=== PATIENT | male | born 1975 | race Two or more races ===

== ENCOUNTER 2017-04-23 08:46 | Day surgery (SDC) | payer OTHER ==
--- NOTE | 2017-04-04 22:34 | HP ---
PREOPERATIVE HISTORY AND PHYSICAL: DATE OF ADMISSION/SURGERY: 04/23/17 PROCEDURE: Right shoulder arthroscopic decompression and excision, distal clavicle. CHIEF COMPLAINT: Right shoulder pain. HISTORY OF PRESENT ILLNESS: Rolando is a 41-year-old male who presented to the clinic for right shoulder pain due to AC joint arthritis. He has failed conservative measures to include injections, therefore has agreed to undergo a right shoulder arthroscopic decompression and excision distal clavicle with Dr. Love on 04/23/17. PAST MEDICAL HISTORY: Seizure disorder and anxiety. PAST SURGICAL HISTORY: Septoplasty mass removal of the right hand pilonidal cyst. Denies prior complications with anesthesia. MEDICATIONS: 1. Adderall XR 30 mg 1 by mouth every day. 2. Methylphenidate HCl ER at 20 mg 1 by mouth every morning. ALLERGIES: No known drug allergies. FAMILY HISTORY: Positive for heart disease, stroke, cancer and rheumatoid arthritis. SOCIAL HISTORY: He lives with his . He is a plain clothes police officer. He denies tobacco use. He reports occasional alcohol consumption. He denies illegal drug use. REVIEW OF SYSTEMS: General: Negative for fever, chills, night sweats. No known anesthesia problems. HEENT: Negative for headache, lightheadedness, or syncopal episodes. Integumentary: Negative for abrasions, lesions, or open wounds. Cardiothoracic: Negative for chest pain, palpitations, or edema. Negative for hypertension. Pulmonary: Negative for shortness of breath with exertion, cough or COPD. GI: Negative for nausea, vomiting, diarrhea, constipation, or GERD. : Negative for nocturia, urinary frequency, history of UTIs or kidney problems. Musculoskeletal: Positive for right shoulder pain. Neuro: Negative for paresthesia or numbness. He does have a history of seizures. Denies history of stroke. Endocrine: Negative for diabetes or thyroid issues. Heme: Negative for easy bruising, anemia, excessive bleeding, or bleeding disorder, history of DVT, or PE. Infectious Disease: Denies history of MRSA. PHYSICAL EXAMINATION GENERAL: A well-developed, well-nourished 41-year-old male in no acute distress. Alert and oriented x3 with appropriate mood and affect. VITAL SIGNS: Height 70, weight 201. Blood pressure 121/82, respiratory rate 16 , temperature 96.7. BMI 28.8. HEENT: Normocephalic, atraumatic. PERRLA. NECK: Supple. Throat clear. PULMONARY: Lungs are clear to auscultation bilaterally. No wheezing, rhonchi, or rales. CARDIO: Regular rate and rhythm. S1 and S2. No murmurs, gallops, or rubs. No edema. ABDOMEN: Positive bowel sounds, soft, nontender. MUSCULOSKELETAL: Right upper extremity skin is intact. Tenderness to palpation over the AC joint and the proximal biceps. Right upper extremity skin is intact. There is tenderness to palpation over the AC joint and the proximal biceps. Forward flexion 160, abduction 160, external rotation to 80, internal rotation to T10. +5/5 strength to rotator cuff testing. +2 radial and ulnar pulse. Sensation intact to light touch distally. NEURO: Alert and oriented x3. Cranial nerves grossly intact. Sensation intact to light touch. DIAGNOSTIC STUDIES/LAB DATA: MRI from an outside facility was reviewed and revealed AC joint arthritis and in the biceps groove. No evidence of full thickness rotator cuff tear. IMPRESSION: Right shoulder AC joint arthritis. PLAN: The patient is scheduled to undergo a right shoulder arthroscopic decompression and excision distal clavicle with Dr. Love on 04/23/17. He will return to the office 10 to 14 days postop for followup and suture removal. Percocet will be used for postoperative pain management. LEWIS GARCIA [id number]/[facility] #: [id number] [facility]
[~2017-04-23 08:46] MED LIST: Buffered Lidocaine 0.9% SYRIN* 5 ML/SYR SYRINGE INTRADERM ONE; Bupivacaine 0.25% SDV* 30 ML ONE; Famotidine IV* 10 MG/ML 2 ML (20 mg) IV ONE; KETAMINE HCL* 50 MG/ML 10 ML VIAL ONE; Midazolam* 1 MG/ML 5 ML VIAL (5 MG) ONE; fentaNYL* 50 MCG/ML 2 ML VIAL (100 MCG VIAL) ONE
[2017-04-23] MEDS ORDERED: Famotidine IV* 10 MG/ML 2 ML (20 mg) ONE (09:03)
[2017-04-23] MEDS ORDERED: Buffered Lidocaine 0.9% SYRIN* 5 ML/SYR SYRINGE ONE (09:04)
[2017-04-23] MEDS ORDERED: ceFAZolin 2 GM PREMIX(*) 2 GM/50 ML BAG IVPB ONE (09:05)
[2017-04-23] MEDS ORDERED: Bupivacaine 0.25% SDV* 30 ML ONE (10:17)
[2017-04-23] MEDS ORDERED: Bupivacaine 0.25% EPI 200,000* 30 ML SDV ONE (10:18)
[2017-04-23] MEDS ORDERED: Ondansetron INJ* 2 MG/ML VIAL ONE (11:18)
[2017-04-23] MEDS ORDERED: Lidocaine 2% PF * 5 ML VIAL ONE (11:18)
[2017-04-23] MEDS ORDERED: PROCHLORPERAZINE INJ 5 MG/ML 2 ML VIAL ONE (11:18)
[2017-04-23] MEDS ORDERED: Dexamethasone IV* 4 MG/ML 1 ML (4 MG) ONE (11:18)
[2017-04-23] MEDS ORDERED: Propofol* 10 MG/ML 20 ML BTL IV PUSH ONE (11:18)
[2017-04-23] MEDS ORDERED: Ketorolac INJ* 30 MG/ML 1 ML VIAL ONE (11:27)
[2017-04-23] MEDS ORDERED: Glycopyrrolate IV* 0.2 MG/ML 1 ML VIAL ONE (11:27)
[2017-04-23] MEDS ORDERED: fentaNYL* 50 MCG/ML 2 ML VIAL (100 MCG VIAL) ONE (11:49)
[2017-04-23] MEDS ORDERED: methylPREDNISolone ACETATE 80* 80 MG/ML 1 ML VIAL ONE (13:02)
[2017-04-23 13:25] VITALS: BP 129/84
--- NOTE | 2017-04-24 07:53 | OP ---
DATE OF OPERATION: 04/23/17 - [facility] DATE OF : 73 ATTENDING SURGEON: Magen Love MD CREW DIRECTOR: LEWIS De La Torre. An child and youth program assistant was used for the entirety of the case to help with positioning, traction, and was utilized throughout all portions of this case. ANESTHESIOLOGIST: Dr. Colby. ANESTHESIA: General, interscalene block. PRE-OP DIAGNOSIS: Right shoulder acromioclavicular joint arthritis with bicipital tendinitis. POST-OP DIAGNOSES: Acromioclavicular joint arthritis with type 2 SLAP tear, mild chondrosis of the glenoid. OPERATIVE PROCEDURES: 1. Right shoulder arthroscopy with extensive glenohumeral debridement including mild chondroplasty. 2. Subacromial decompression with acromioplasty. 3. Distal clavicle excision. 4. Subpectoral biceps tenodesis. 5. Subacromial space injection with 80 mg Depo-Medrol. 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 He had persistent AC joint arthritis and an AC sprain. This progressively got worse. He has failed 2 injections which brought him 100% relief. He had an MRI that was done and demonstrates no rotator cuff tears, but there is bicipital tendinitis and possible SLAP tear. After an extensive discussion of the risks and benefits of operative versus nonoperative treatment, he elected to proceed with operative treatment. Risks include, but are not limited to bleeding, infection, damage to nerves, vessels, surrounding structures, the wound nonhealing, persistent pain, need for further surgery, risk of anesthesia, scarring, stiffness, persistent pain, incomplete relief of symptoms, risk of DVT, and need for further surgery. COMPLICATIONS: None. ESTIMATED BLOOD LOSS: Minimum. DESCRIPTION OF PROCEDURE: The patient was greeted in the preoperative area by the attending surgeon. Correct extremity was marked and consent was confirmed. The patient then underwent interscalene nerve block by the anesthesiologist after which the patient was brought back to the operating suite, where he was placed in supine position on the operating table. He then was gently transitioned into the left lateral decubitus position with an axillary roll. At this point, he underwent general anesthesia and LMA intubation after which pegs were used to secure the patient. The right arm was suspended from the retraction frame. All bony prominences were padded. The right shoulder was then prepped and draped in the usual sterile fashion beginning with chlorhexidine soap, scrub, and alcohol wipe, and a final prep with ChloraPrep. After appropriate surgical pause indicating side, site, procedure, and administration of antibiotics, the posterolateral portal was made sharply with an 11 blade, the scope was then introduced to the joint. The joint was examined. There was obvious type 2 SLAP tearing with biceps subluxed anteriorly. The humeral head had grade 0 changes. The glenoid had grade 0 to 1 changes except for a small area that had chondrosis posteriorly inferiorly. The posterior labrum had unstable fraying. The anterior labrum had unstable fraying. There was an unstable flap of the superior labrum that was floating in the joint. The supraspinatus tendon was intact, subscapularis was intact and looked normal. There was erythema and hyperemia in the anterior interval. The anterior portal was made in an outside-in fashion and a shaver was brought in to debride the unstable fraying of the anterior superior posterior labrum. The biter was then used to do a tenotomy for later tenodesis. A shaver was used to do a small chondroplasty as well to debride the unstable flap. Inferior recess is intact. The infraspinatus is also intact. After the debridement, complete attention was directed to the subacromial space. The scope was introduced into the subacromial space. A lateral portal was made in an outside-in fashion and the shaver was used to debride the bursa that was present. The electrocautery device was used to skeletonize the acromion. There was a moderate sized anterolateral spur. The spur was identified. A 4-0 oval prashant was then used to do acromioplasty, which helped expose the AC joint. There was a large inferior spur and stenosis at the AC joint. Coplaning of that joint was done from the lateral portal. Once this was complete, all loose debris and tissue were removed and attention was directed at the AC joint. The prashant was brought into the anterior portal and the AC joint was examined. There was abundant stenosis that was apparent. A subclavicular excision was done to remove approximately 8 mm of the bone with care to prevent damage to the CC ligaments. After the distal clavicle excision was done the clavicle was taken through range of motion to make sure that there was no further areas of impingement and once this was completed, all final images were obtained. All fluid and debris was removed from the subacromial space. An 80-gauge needle was placed in the subacromial space for later injection of 80 mg of Depo- Medrol. Attention was directed to the biceps. The bed was air planed slightly to the right side. The anterior aspect of the shoulder was prepped again and the 15-blade was used to make an incision inline with the biceps tendon. The soft tissues were carefully dissected using Metzenbaum scissors. Once the fascia was identified, the remainder of the dissection was done bluntly. The pec tendon was identified and was then elevated proximally and superiorly. The biceps groove was identified and palpated. A small martinez in the fascia was done and the biceps was brought through the wound and was found to have abundant erythema and synovitis. There were also adhesions to the bicipital groove. The bicipital groove was then prepared in the usual fashion with electrocautery device, then a small ball rasp and then an osteotome to allow for bony bleeding bed. A Q-Fix anchor was drilled unicortically and deployed with excellent purchase. The sutures were passed through the tendon approximately 1 cm proximal to the musculotendinous junction in a Shun-Amador type configuration. This was then tied back down. Once the sutures were passed through the excess stump was excised and the biceps was shuttled back into the groove and tied down. The wounds were copiously irrigated. The anterior wound was closed in layers with 2-0 Vicryl and 3-0 Monocryl. The portal layers were closed with 3-0 nylon. Sterile dressings were applied. The subacromial space was injected with 80 mg of Depo-Medrol and 3 cc of Marcaine. The anterior groove was injected with 20 mL of 0.25 % Marcaine. A Cryo/Cuff as well as an UltraSling were applied. He was awoken from anesthesia, transferred to PACU in stable condition. POSTOPERATIVE PLAN: He will be nonweightbearing for 4 weeks. He will be in a sling. He will be allowed to work on elbow, hand, and wrist range of motion. He will start therapy in the next week. He will be discharged on pain medications and antibiotics. DVT prophylaxis was considered, but deferred due to no previous personal or family history. I will see the patient back in 10 to 14 days. [id number]/[facility] #: [id number] [facility]
== END 2017-04-23 13:44 | disposition home or self-care (01) ==
LOC: OREAST 08:46
PROVIDERS: ATTEND Orthopaedic Surgery
DX: M19.011 Primary osteoarthritis, right shoulder (principal); M75.21 Bicipital tendinitis, right shoulder; S43.431A Superior glenoid labrum lesion of right shoulder, initial encounter; M94.8X1 Other specified disorders of cartilage, shoulder; X58.XXXA Exposure to other specified factors, initial encounter; Y92.9 Unspecified place or not applicable; G89.18 Other acute postprocedural pain
CPT/HCPCS: C1776; J0690; J0780; J1040; J1100; J1885; J2250; J2405; J2704; J3010

== ENCOUNTER 2017-05-26 18:38 | Emergency (ER) | payer BC, OTHER ==
--- NOTE | 2017-05-26 18:41 | UC ---
Skin Complaint HPI - HPI Summary HPI Summary: 41 YEAR OLD MALE PRESENTS WITH COMPLAINS OF LESIONS UNDER HIS RIGHT EYE. - History of Current Complaint Time Seen by Provider: 05/26/17 18:40 Stated Complaint: SKIN COMPLAINT NEAR EYE - Allergy/Home Medications Allergies/Adverse Reactions: Allergies Allergy/AdvReac Type Severity Reaction Status Date / Time No Known Allergies Allergy Verified 05/26/17 18:42 Review of Systems Constitutional: Negative Skin: Rash, Other - VESICULAR LESIONS UNDER RIGHT EYE Eyes: Negative ENT: Negative Respiratory: Negative Cardiovascular: Negative Gastrointestinal: Negative Genitourinary: Negative Motor: Negative Neurovascular: Negative Musculoskeletal: Negative Neurological: Negative Psychological: Negative All Other Systems Reviewed And Are Negative: Yes PMH/Surg Hx/FS Hx/Imm Hx - Surgical History Surgical History: Yes Surgery Procedure, Year, and Place: pilonidal cyst removed-[facility]. inner turbinate cautery-[facility] [place]. LUMP EXCISION ON RT HAND 1 YR AGO- DR COTO - Family History Known Family History: Positive: Diabetes, Seizure Disorder, Other - no history of glaucoma in family - Social History Alcohol Use: Occasionally Alcohol Amount: 1-2 drinks per week Substance Use Type: None Smoking Status (MU): Never Smoked Tobacco Physical Exam Triage Information Reviewed: Yes Eye Exam: Normal ENT Exam: Normal Dental Exam: Normal Neck exam: Normal Neck: Positive: 1 Respiratory Exam: Normal Cardiovascular Exam: Normal Abdominal Exam: Normal Musculoskeletal Exam: Normal Neurological Exam: Normal Psychological Exam: Normal Skin: Positive: significant lesion(s) - VESICULAR LESION UNDER RIGHT EYE Course/Dx - Diagnoses Provider Diagnoses: OCULAR SHINGLES Discharge - Discharge Plan Condition: Stable Disposition: HOME Prescriptions: Acyclovir* [Zovirax TAB*] 800 mg PO Q4H #35 tab Trifluridine 1% OPTH.TRISTIAN*(NF) [Viroptic 1% OPTH.TRISTIAN*] 1 drop .SEE ORDER Q4H #1 btl predniSONE TAB* [Deltasone TAB*] 40 mg PO DAILY #10 tab Patient Education Materials: Shingles (ED) Referrals: Florence Espinoza NP [Primary Care Provider] - Carlos Rangel MD [Medical Doctor] -
[2017-05-26 18:49] VITALS: BP 125/91
[2017-05-26] MEDS ORDERED: Acyclovir* 200 MG CAP PO ONE (18:53)
== END 2017-05-26 19:07 | disposition home or self-care (01) ==
LOC: UCEAST 18:38
DX: B02.30 Zoster ocular disease, unspecified (principal)
CPT/HCPCS: 99212; A9270-GY; G0463